=== PATIENT | female | born 1980 | race Caucasian/White ===

== ENCOUNTER 2021-02-02 23:47 | Observation (INO) ==
[2021-02-03] MEDS ORDERED: PROMETHAZINE HCL INJ 25 MG/ML 1 ML VIAL IM STA (05:05)
[2021-02-03] MEDS ORDERED: MoRPHine SULFATE 10 MG/ML CARP/VIAL IM STA (05:05)
--- NOTE | 2021-02-03 05:09 | History & Physical Report ---
Date of Service February 03, 2021 Assessment & Plan (1) Labor, prolonged latent phase: Plan: Options given to pt to go home vs. morphine rest. she has concerns that with her narcolepsy she will not rest at home and therefore wants to stay for morphine rest. FHTs categ 1. History of Present Illness Chief Complaint: contractions Primary Care Provider: NO PCP 41yo at 38wks with cc of contractions. No rom. No vb. +FM. She has been here for 4hr with no significant cx change. Ctx are less frequent but she is concerned with going home and not being able to sleep. Offered and accepted morphine rest. PNC c/b ama, RA, depression and narcolepsy, pylectasis PNL RH Pos, RI, GBS neg Allergies Allergy/AdvReac Type Severity Reaction Status Date / Time acetaminophen [From Lortab] Allergy Difficulty Verified 02/03/21 00:24 Breathing hydrocodone [From Lortab] Allergy Difficulty Verified 02/03/21 00:24 Breathing latex Allergy Hives Verified 02/03/21 00:24 sulfasalazine Allergy Hives Verified 02/03/21 00:24 tocilizumab [From Actemra] Allergy Anaphylaxis Verified 02/03/21 00:24 tramadol Allergy Difficulty Verified 02/03/21 00:24 Breathing Home Medications Medication Instructions Recorded Confirmed Type sertraline 25 mg tablet (Zoloft) 50 mg PO DAILY 10/01/19 02/03/21 History prenat.vits,demario,[id number] 1 tab PO DAILY 06/30/20 02/03/21 History aspirin 81 mg chewable tablet 81 mg PO DAILY 09/03/20 02/03/21 History breast pump #1 ea 11/16/20 02/03/21 Rx iron 1 tab PO Q OTHER DAY 02/03/21 02/03/21 History Patient History Medical History (Updated 02/03/21 @ 05:08 by Mariela Caro MD, FACOG) History of chicken pox Spontaneous 09/2019 Spontaneous vaginal delivery [facility] 2007 Surgical History S/P gastric surgery S/P tonsillectomy S/P wisdom tooth extraction Family History Mother Thyroid disease Asthma Daughter Asthma Juvenile arthritis Aunt Breast cancer Heart disease Grandmother (Maternal) Colorectal cancer Grandfather (Maternal) Hemochromatosis Social History (Updated 06/30/20 @ 13:20 by Lyla Clark) Smoking Status: Never smoker Hx Alcohol Use: No Hx Substance Use: No Preferred Language: Czech Communication Ability: Effective Offset Label Rewinder Required: No Beliefs That Will Affect Care: None marital status: marital status details: Nestor Wallace (42) [phone] Current Living Situation: Significant Other Current Living Situation Comment: house with Nestor current occupational status: employed 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 Other Information That Helps Us Care for You: No Feels Safe at Home: Yes Safety Concerns: Feels Safe At This Time Assistive Devices: None Physical Exam Constitutional: WD/WN, vitals as above Genitourinary: Manual OB Exam: + cervical dilation 4 cm, + cervical effacement 60% and + station -2 OB Exam Monitor Tracing: + external FHT monitor used, + external uterine monitor used (q5), + category I and + normal FHT variability Results & Data ([facility]) Vital Signs (Past 12 Hours) Vital Signs Temp Pulse Resp BP 02/03/21 04:14 97.7 F 68 18 121/77 02/03/21 00:34 97.7 F 18 02/03/21 00:08 67 108/69 Coding Level of Care Code None Diagnoses Labor, prolonged latent phase O63.0
--- NOTE | 2021-02-03 07:21 | Obstetrical Progress Note ---
Date of Service February 03, 2021 Assessment & Plan (1) False labor after 37 completed weeks of gestation: Plan: no evid of active labor. rec d/c home. has appt sunday. call with any worsening s/sx labor. nst reactive. >30min by bedside during her outpt stay here in LD Admission and Anticipated Discharge Date Admission Date: February 03, 2021 Subjective got some rest with morphine, ctx not as strong or frequent Physical Exam Constitutional: WD/WN, vitals as above Genitourinary: Manual OB Exam: + cervical dilation 4 cm, + cervical effacement 60% and + station -2 OB Exam Monitor Tracing: + external FHT monitor used, + external uterine monitor used (q5), + category I (reactive nst) and + normal FHT variability Results & Data ([facility]) Vital Signs (Past 12 Hours) Vital Signs Temp Pulse Resp BP 02/03/21 04:14 97.7 F 68 18 121/77 02/03/21 00:34 97.7 F 18 02/03/21 00:08 67 108/69 PG Care Time/CCT Total # of Minutes Spent Total Time Spent: 45 Total Time Spent with Patient: Total time spent is greater than 50% in coordination of care (as documented) at patient's floor/unit and/or counseling patient: Coding Level of Care Code 77018 Office/Outpt Visit, Est Diagnoses False labor after 37 completed weeks of gestation O47.1 CPT Codes Misx Procedure Codes - 21585 NST: 96269 NST ([id number]) PAINTER BARREL Miscellaneous Codes Misx Procedure Codes 34223 NST
== END 2021-02-03 07:30 | disposition home or self-care (01) ==
LOC: OPB 23:47 → 4S1 23:47 → 4S2 02-03 05:50 → 4S1 02-03 06:08

== ENCOUNTER 2021-02-03 14:55 | Inpatient (IN) ==
[2021-02-03] MEDS ORDERED: LACTATED RINGER'S 1,000 ML IV PRN (15:16)
[2021-02-03] MEDS ORDERED: OXYTOCIN 30 UNITS/500 ML BAG IV PRN ×2 (15:16→18:17)
--- NOTE | 2021-02-03 15:19 | Labor Progress Brief Note ---
Date of Service February 03, 2021 Subjective Pt returns with trickle of red liquid and worse contractions, good FM. Assessment & Plan (1) Normal labor and delivery: Plan: Admit, epidural if possible, exp mgmt. Physical Exam Physical Exam: /-1 bloody show and SROM evident for clear to bloody fluid FHT Cat 1 Pierz Q2min Results & Data ([facility]) Vital Signs (Past 12 Hours) Vital Signs Temp Pulse Resp BP 02/03/21 15:04 97.5 F L 22 02/03/21 15:03 81 105/70 Coding Level of Care Code None Diagnoses Normal labor and delivery O80
[2021-02-03] MEDS ORDERED: fentaNYL citrate 100 MCG/2 ML VIAL ONE ×2 (15:28→19:12)
[2021-02-03] MEDS ORDERED: BUPIVACAINE 0.25% 30 ML VIAL ONE ×2 (15:28→19:12)
[2021-02-03] MEDS ORDERED: ePHEDrine sulfate 50 MG/ML AMP ONE ×2 (15:28→19:12)
[2021-02-03] MEDS ORDERED: SODIUM CHLORIDE 0.9% INJ 10 ML VIAL ONE ×2 (15:28→19:12)
[2021-02-03] MEDS ORDERED: fentaNYL 2MCG/ML ROPIVACAINE 1.25MG/ML 100 ML BAG EPI ONE ×2 (15:29→19:12)
[2021-02-03 15:36] LABS: Hematocrit (blood only) 36.7 % (37-47); Hemoglobin 12.6 g/dL (12.0-16.0); Mean Corpuscular Hemoglobin 30.7 pg (25-34); Mean Corpuscular Volume 89.5 fL (80-100); Mean Platelet Volume 10.5 fL (7.4-10.4); Platelet Count 216 K/uL (130-400); RDW Coefficient of Variation 14.2 % (11.5-14.5); White Blood Count 11.91 K/uL (4.8-10.8)
[2021-02-03] MEDS ORDERED: fentaNYL 2MCG/ML ROPIVACAINE 1.25MG/ML 100 ML BAG EPI PRN (15:36)
[2021-02-03] MEDS ORDERED: NALOXONE HCL 1 MG in SODIUM CHLORIDE 0.9% 1000ML 1,000 ML IV PRN (15:36)
[2021-02-03] MEDS ORDERED: diphenhydrAMINE 50 MG/ML VIAL IV PRN (15:36)
[2021-02-03] MEDS ORDERED: ONDANSETRON INJ 2 MG/ML 2 ML VIAL IV PRN (15:36)
[2021-02-03] MEDS ORDERED: ePHEDrine sulfate 50 MG/ML AMP IV PRN (15:36)
[2021-02-03] MEDS ORDERED: NALOXONE HCL 0.4 MG/1 ML VIAL/CARP IV PRN (15:36)
--- NOTE | 2021-02-03 15:38 | Anesthesiology Consultation ---
Date of Service February 03, 2021 Assessment & Plan (1) Encounter for pre-operative examination: Chart Review Chart Review: Patient NOT seen in Pre Admission Testing and Acceptable Risk for Labor Epidural Consults Requested none History Allergies Allergy/AdvReac Type Severity Reaction Status Date / Time acetaminophen [From Lortab] Allergy Difficulty Verified 02/03/21 00:24 Breathing hydrocodone [From Lortab] Allergy Difficulty Verified 02/03/21 00:24 Breathing latex Allergy Hives Verified 02/03/21 00:24 sulfasalazine Allergy Hives Verified 02/03/21 00:24 tocilizumab [From Actemra] Allergy Anaphylaxis Verified 02/03/21 00:24 tramadol Allergy Difficulty Verified 02/03/21 00:24 Breathing Medications Home Medications Medication Instructions Recorded Confirmed Last Taken sertraline 25 mg tablet (Zoloft) 50 mg PO DAILY 10/01/19 02/03/21 02/02/21 19:00 prenat.vits,demario,fje-karq-sdwto 1 tab PO DAILY 06/30/20 02/03/21 02/02/21 19:00 aspirin 81 mg chewable tablet 81 mg PO DAILY 09/03/20 02/03/21 02/02/21 19:00 breast pump #1 ea 11/16/20 02/03/21 Unknown iron 1 tab PO Q OTHER DAY 02/03/21 02/03/21 02/02/21 19:00 Past Medical History Medical History History of chicken pox Spontaneous 09/2019 Spontaneous vaginal delivery [facility] 2007 Exercise / Class Metabolic Activity II 4-5 Yardwork/Stairs/Walk up hill Past Family History Family History Mother Thyroid disease Asthma Daughter Asthma Juvenile arthritis Aunt Breast cancer Heart disease Grandmother (Maternal) Colorectal cancer Grandfather (Maternal) Hemochromatosis Past Surgical History Surgical History S/P gastric surgery S/P tonsillectomy S/P wisdom tooth extraction Past Anesthesia History No Hx of Anesthesia Complications and No Family Hx of Anesthesia Complications History of PONV No Hx of PONV and No Hx of Motion Sickness Social History Smoking Status: Never smoker Do You Dip or Chew Tobacco: No Hx Alcohol Use: No Hx Substance Use: No Physical Exam Vital Signs Last Vital Signs Temp 36.4 C L 02/03/21 15:04 Pulse 80 02/03/21 15:37 Resp 22 02/03/21 15:04 BP 105/70 02/03/21 15:03 Pulse Ox 100 02/03/21 15:37 Testing Laboratory Results 02/03/21 15:24
[2021-02-03 15:48] LABS: Mean Corpuscular Hgb Conc 34.3 g/dL (32-36)
[2021-02-03] MEDS ORDERED: LIDOCAINE 2%/EPINEPHRINE 1:200,000 20 ML SDV ONE (18:09)
--- NOTE | 2021-02-03 18:24 | Labor Progress Brief Note ---
Date of Service February 03, 2021 Subjective Very painful, but also anxious about having a new epidural placed, as last attempt was very anxiety-provoking for her. Assessment & Plan (1) Normal labor and delivery: Plan: Discussed labor + srom, need to continue moving forwards due to ruptured membranes, and recommend pitocin. Given that this will necessarily make contractions stronger and more frequent, encouraged attempting replacement of epidural. Patient agrees. Admission and Anticipated Discharge Date Admission Date: February 03, 2021 Physical Exam Physical Exam: FHT Cat 1 Pigeon Q5 / irreg Cvx unchanged, still 8cm LOF continues, clear + blood tinge Results & Data ([facility]) Vital Signs (Past 12 Hours) Vital Signs Temp Pulse Resp BP Pulse Ox 02/03/21 18:15 90 145/99 H 02/03/21 18:12 72 97 02/03/21 18:07 71 91 02/03/21 18:05 76 86 L 02/03/21 18:03 71 124/78 02/03/21 18:02 75 99 02/03/21 17:57 73 94 02/03/21 17:56 87 87 L 02/03/21 17:52 83 97 02/03/21 17:48 76 115/59 L 02/03/21 17:47 77 97 02/03/21 17:42 68 93 02/03/21 17:37 72 94 02/03/21 17:33 68 125/75 02/03/21 17:32 75 98 02/03/21 17:27 75 95 02/03/21 17:22 76 98 02/03/21 17:18 77 161/84 H 02/03/21 17:17 79 94 02/03/21 17:12 69 94 02/03/21 17:07 79 94 02/03/21 17:03 97.5 F L 100 H 22 116/67 02/03/21 17:02 86 95 02/03/21 17:00 100 H 116/67 02/03/21 16:57 84 96 02/03/21 16:54 75 133/70 02/03/21 16:52 81 95 02/03/21 16:48 69 122/66 02/03/21 16:47 75 96 02/03/21 16:45 72 113/76 02/03/21 16:42 79 100 02/03/21 16:40 75 149/86 H 02/03/21 16:37 81 96 02/03/21 16:36 85 113/63 02/03/21 16:34 71 110/66 02/03/21 16:32 69 95/51 L 95 02/03/21 16:28 69 95/51 L 02/03/21 16:27 74 97/51 L 100 02/03/21 16:25 75 94 02/03/21 16:24 70 107/59 L 02/03/21 16:23 76 97/51 L 02/03/21 16:22 76 96 02/03/21 16:21 78 137/60 02/03/21 16:18 73 102/53 L 02/03/21 16:17 69 96 02/03/21 16:16 76 114/58 L 02/03/21 16:14 74 112/60 02/03/21 16:13 81 103/55 L 02/03/21 16:12 81 96 02/03/21 16:11 82 93 02/03/21 16:08 72 123/76 02/03/21 16:07 74 122/87 99 02/03/21 16:05 77 156/83 H 02/03/21 16:02 83 99 02/03/21 16:00 95 H 139/84 02/03/21 15:57 78 99 02/03/21 15:52 92 H 99 02/03/21 15:47 83 100 02/03/21 15:42 93 H 99 02/03/21 15:37 80 100 02/03/21 15:32 87 100 02/03/21 15:04 97.5 F L 22 02/03/21 15:03 81 105/70 Coding Level of Care Code None Diagnoses Normal labor and delivery O80
--- NOTE | 2021-02-03 21:19 | Delivery Summary ---
Vaginal Delivery Summary Date of Service February 03, 2021 Vaginal Delivery Summary DIAGNOSES: 1. Courtney intrauterine at 38w4d gestation. 2. Spontaneous onset of labor. 3. Group B Streptococcus Neg. 4. Advanced maternal age >40yo 5. Rheumatoid Arthritis in mother 6. renal pyelectasis PROCEDURE: Spontaneous vaginal delivery without laceration. SURGEON: Swathi Robison MD. JUNIOR DATA ANALYST: None. ESTIMATED BLOOD LOSS: 150 mL. COMPLICATIONS: None. PLACENTA: Spontaneous and intact with a 3-vessel cord. DISPOSITION: Stable to labor and delivery. DESCRIPTION: The patient pushed well and brought the head to in OA position. The infant's head was allowed to deliver with contraction force and no further active pushing, with the perineum protected during this time. There was an occult loop of prolapsed cord which delivered alongside and beyond the head. The right shoulder was anterior. The shoulders and body delivered without any difficulty, and the was placed on the maternal abdomen. It was vigorous and moving all extremities, and making respiratory efforts. The cord was doubly clamped by the MD and then cut by the FOB. The placenta delivered spontaneously and was noted to be intact and with a 3VC. The cervix, vagina and perineum were examined and were found to be without defect requiring repair. The fundus was firm and lochia minimal immediately after delivery. [facility] Vaginal Delivery Charge Vaginal Delivery Codes: 35956 global code for the antepartum, delivery, and post-
[2021-02-03] MEDS ORDERED: HYDROCORTISONE ACETATE 25 MG SUPP PR PRN (21:32)
[2021-02-03] MEDS ORDERED: oxyCODONE/ACETAMINOPHEN 5mg/325mg TAB PO PRN (21:32)
[2021-02-03] MEDS ORDERED: ACETAMINOPHEN 325 MG TAB PO PRN (21:32)
[2021-02-03] MEDS ORDERED: SUPERCREAM 0.870% 15 GM JAR EXT PRN (21:32)
[2021-02-03] MEDS ORDERED: BENZOCAINE 20% AER SPR 82.5 GM CAN EXT PRN (21:32)
--- NOTE | 2021-02-03 21:39 | Anesthesia Procedure Note ---
Date of Service February 03, 2021 Anesthesia Post Epidural Note Vital Signs Vital Signs: Temp Pulse Resp BP Pulse Ox 36.8 C 90 18 129/82 97 02/03/21 21:19 02/03/21 21:34 02/03/21 21:19 02/03/21 21:34 02/03/21 21:17 Pain Intensity Right Hip: Pain Intensity: 0 Notes Mental Status: alert / awake / arousable and participated in evaluation Patient Amnestic to Procedure: No Nausea / Vomiting: adequately controlled Pain: adequately controlled Airway Patency, RR, SpO2: stable & adequate BP & HR: stable & adequate Hydration State: stable & adequate Neuraxial Anesthesia: was administered and sensory block is resolving Anesthetic Complications: no major complications apparent and Pt Satisfied with anesthetic care Epidural: Removed without complications and With tip intact
[2021-02-04] MEDS: IBUPROFEN 600 MG TAB PO PRN ×5 (00:31→19:49)
[2021-02-04 06:15] LABS: Hematocrit (blood only) 33.4 % (37-47); Hemoglobin 11.3 g/dL (12.0-16.0)
--- NOTE | 2021-02-04 06:16 | Obstetrical Progress Note ---
Date of Service <Rosie Nguyen DO - Last Filed: 02/04/21 06:16> February 04, 2021 Assessment & Plan <Rosie Nguyen DO - Last Filed: 02/04/21 06:16> (1) Encounter for care and examination after delivery: 41 yo post op day1 from , doing well. -Continue routine post care. -vital signs reviewed and WNL (Tmax 37.1) -Blood Type A+, GBS-, Rubella immune -Encourage ambulation, monitor and control pain with Motrin, tylenol PRN, resume regular diet, monitor lochia -encourage breast feeding -hemoglobin 12.6 (02/03) -discussed d/c, patient may be comfortable leaving in afternoon Day #:: 1 <Swathi Robison MD - Last Filed: 02/04/21 07:17> (1) Encounter for care and examination after delivery: Subjective <Rosie Nguyen DO - Last Filed: 02/04/21 06:16> Ambulation: ambulating normally Voiding: no voiding problems Passing Gas:: No Diet Tolerance:: regular diet Lochia:: Small Feeding Type:: breast feeding Current Pain Level(1-10): 3 (pain well controlled on medication) Review of Systems Denies fever, chills, sweats Denies shortness of breath, difficulty breathing, chest pain, palpitations, c hest pressure. Denies breast pain. Denies dysuria. Denies headache or changes in vision. Physical Exam <DO Rashaad Turner Last Filed: 02/04/21 06:16> General: Alert, oriented. No acute distress. Cardiac: Regular rate and rhythm, no murmurs/rubs/gallops. Respiratory: Clear to auscultation bilaterally a/p, no wheezes/rales/rhonchi. No increased work of breathing. Symmetrical chest rise. No respiratory distress. Abdomen: Soft, nontender, nondistended. Bowel sounds present. Uterus: Uterine fundus firm, palpable at umbilicus. Lower Extremities: No lower extremity edema or swelling. No deep calf pain. Karan's negative bilaterally.. Results & Data ([facility]) <Rosie Nguyen DO - Last Filed: 02/04/21 06:16> Vital Signs (Past 12 Hours) Vital Signs Temp Pulse Pulse Resp BP BP Pulse Ox 02/04/21 04:30 37.1 C 71 16 94/64 L 96 02/04/21 00:05 37.6 C H 78 18 106/70 97 02/03/21 23:34 86 109/60 02/03/21 23:19 80 105/64 02/03/21 23:04 79 18 103/59 L 02/03/21 22:49 85 99/58 L 02/03/21 22:34 86 18 117/67 02/03/21 22:19 84 18 111/69 02/03/21 22:04 83 18 111/69 02/03/21 21:51 90 18 114/60 02/03/21 21:34 90 18 129/82 02/03/21 21:19 36.8 C 88 18 120/67 02/03/21 21:17 97 H 97 02/03/21 21:12 95 H 100 02/03/21 21:07 90 81 L 02/03/21 21:04 75 112/71 02/03/21 21:02 90 100 02/03/21 20:57 80 100 02/03/21 20:55 76 87 L 02/03/21 20:52 71 98 02/03/21 20:50 66 113/73 02/03/21 20:47 71 97 02/03/21 20:42 70 99 02/03/21 20:37 69 97 02/03/21 20:34 69 109/64 02/03/21 20:32 69 100 02/03/21 20:27 69 99 02/03/21 20:22 70 100 02/03/21 20:17 75 100/63 98 02/03/21 20:13 67 104/70 02/03/21 20:12 71 100 02/03/21 20:08 68 111/66 02/03/21 20:07 68 98 02/03/21 20:02 71 101/65 99 02/03/21 19:57 75 115/66 97 02/03/21 19:53 71 105/70 02/03/21 19:52 76 100 02/03/21 19:47 82 95 02/03/21 19:46 76 101/66 02/03/21 19:44 93 H 91/56 L 02/03/21 19:42 77 103/69 99 08/12/21 19:40 75 103/64 02/03/21 19:38 89 100/67 02/03/21 19:37 76 98 02/03/21 19:36 92 H 98/64 L 02/03/21 19:34 77 115/75 02/03/21 19:32 87 111/76 97 02/03/21 19:30 77 109/85 02/03/21 19:27 78 98 02/03/21 19:22 88 94 02/03/21 19:18 75 128/75 02/03/21 19:17 74 100 02/03/21 19:12 78 100 02/03/21 19:07 80 99 02/03/21 19:02 36.4 C L 73 18 127/77 96 02/03/21 18:57 77 99 02/03/21 18:52 80 100 02/03/21 18:47 81 118/79 98 02/03/21 18:42 74 97 02/03/21 18:37 76 97 02/03/21 18:33 79 101/59 L 02/03/21 18:32 80 87/50 L 96 02/03/21 18:27 72 98 02/03/21 18:22 92 H 94 02/03/21 18:18 75 161/87 H 02/03/21 18:17 83 98 02/03/21 18:15 90 145/99 H Laboratory Results 02/04/21 02/03/21 02/03/21 Range/Units 05:58 15:24 15:21 WBC 11.91 H (4.8-10.8) K/uL RBC 4.10 L (4.2-5.4) M/uL Hgb 11.3 L 12.6 (12.0-16.0) g/dL Hct 33.4 L 36.7 L (37-47) % MCV 89.5 (80-100) fL MCH 30.7 (25-34) pg MCHC 34.3 (32-36) g/dL RDW Std Deviation 47.0 H (36.4-46.3) fL RDW Coeff of Wayne 14.2 (11.5-14.5) % Plt Count 216 (130-400) K/uL MPV 10.5 H (7.4-10.4) fL COVID-19 Eval Order SARS-CoV-2, RNA, NAAT NEGATIVE (NEGATIVE) 02/03/21 Range/Units 15:21 WBC (4.8-10.8) K/uL RBC (4.2-5.4) M/uL Hgb (12.0-16.0) g/dL Hct (37-47) % MCV (80-100) fL MCH (25-34) pg MCHC (32-36) g/dL RDW Std Deviation (36.4-46.3) fL RDW Coeff of Wayne (11.5-14.5) % Plt Count (130-400) K/uL MPV (7.4-10.4) fL COVID-19 Eval [facility] SARS-CoV-2, RNA, NAAT (NEGATIVE) Medications Administered Current Inpatient Medications Acetaminophen (Acetaminophen 325 Mg Tab) 650 mg PO Q6H PRN PRN Reason: Pain/GUZMAN/Fever Stop: 03/05/21 21:31 Benzocaine (Benzocaine 20% Aer Spr 82.5 Gm Can) 1 appln EXT PRN PRN PRN Reason: Perineal Discomfort Stop: 03/05/21 21:31 Cocaine HCl (Supercream 0.870% 15 Gm Jar) 1 gm EXT BID PRN PRN Reason: Hemorrhoidal Inflammation Stop: 02/17/21 21:31 Diphtheria/Pertussis/Tetanus Vacc (Diphtheria/Tetanus/Pertussis 0.5 Ml Syr/Vial) 0.5 ml IM .ONCE ONE Stop: 02/04/21 09:01 Hydrocortisone (Hydrocortisone Acetate 25 Mg Supp) 25 mg DC BID PRN PRN Reason: Hemorrhoidal Inflammation Stop: 03/05/21 21:31 Oxytocin (Pitocin) 30 units in 500 mls @ 333.333 mls/hr IV .Q1H30M PRN; Protocol PRN Reason: Bleeding Control Stop: 03/05/21 15:15 Lactated Ringer's (Lr) 1,000 mls @ 125 mls/hr IV .Q8H PRN; Protocol PRN Reason: L&D Protocol Stop: 02/05/21 15:15 Last Admin: 02/03/21 17:39 Dose: 125 mls/hr Documented by: Ibuprofen (Ibuprofen 600 Mg Tab) 600 mg PO Q4H PRN PRN Reason: Pain/GUZMAN/Cramping/Fever Stop: 03/05/21 21:31 Last Admin: 02/04/21 04:54 Dose: 600 mg Documented by: Oxycodone/Acetaminophen (Oxycodone/Acetaminophen 5mg/325mg Tab) 1 tab PO Q4H PRN PRN Reason: Pain not relieved by... Stop: 02/17/21 21:31 Prenat Multivit/[place]/Iron/Folic Ac ( Vitamin 1 Tab) 1 tab PO DAILY@08 [facility] Stop: 03/06/21 07:59 Sertraline HCl (Sertraline Hcl 50 Mg Tablet) 50 mg PO DAILY [facility] Stop: 03/06/21 08:59 <Swathi Robison MD - Last Filed: 02/04/21 07:17> Co-Signing Physician Notes Resident Physician Supervision Note: I interviewed and examined the patient. Discussed with Dr. Nguyen and agree with findings and plan as documented in the note. Any exceptions or clarifications are listed here: Patient not eligible for d/c home until after 2100 and will be staying until tomorrow despite note above. Documented By: Swathi Robison MD, FACOG Resident Activity Tracking <Rosie Nguyen DO - Last Filed: 02/04/21 06:16> Resident Involvement: Resident Care Provided Care Provided: OB Delivery
[2021-02-04] MEDS ORDERED: Nursing to Pharmacy Communication SCH (06:45)
[2021-02-04] MEDS: PRENATAL VITAMIN 1 TAB PO SCH (08:34)
[2021-02-04] MEDS ORDERED: SERTRALINE HCL 50 MG TABLET PO SCH ×2 (09:00→19:00)
[2021-02-04] MEDS ORDERED: DIPHTHERIA/TETANUS/PERTUSSIS 0.5 ML SYR/VIAL IM ONE (09:00)
[2021-02-04 20:30] VITALS: TEMP 97.5
[2021-02-05] MEDS: IBUPROFEN 600 MG TAB PO PRN ×3 (00:10→08:55)
--- NOTE | 2021-02-05 07:28 | Obstetrical Progress Note ---
Date of Service <Rosie Nguyen - Last Filed: 02/05/21 07:28> February 05, 2021 Assessment & Plan <Rosie NguyenDO - Last Filed: 02/05/21 07:28> (1) Encounter for care and examination after delivery: 41 yo post op day2 from , doing well. -Continue routine post care. -vital signs reviewed and WNL (Tmax 37.1) -Blood Type A+, GBS-, Rubella immune -Encourage ambulation, monitor and control pain with Motrin, tylenol PRN, resume regular diet, monitor lochia -encourage breast feeding -hemoglobin 13.3 -discussed d/c, awaiting US for baby Day #:: 2 <Leigha Mckeon MD, FACOG - Last Filed: 02/05/21 08:23> (1) Encounter for care and examination after delivery: Subjective <Rosie PatrickDO - Last Filed: 02/05/21 07:28> Ambulation: ambulating normally Voiding: no voiding problems Passing Gas:: Yes Diet Tolerance:: regular diet Lochia:: Small Feeding Type:: breast feeding Current Pain Level(1-10): 2 (pain well controlled on medication) Review of Systems Positive occasional abdominal cramping Denies fever, chills, sweats Denies shortness of breath, difficulty breathing, chest pain, palpitations, chest pressure. Denies breast pain. Denies dysuria. Denies headache or changes in vision. Physical Exam <Rosie PatrickDO - Last Filed: 02/05/21 07:28> General: Alert, oriented. No acute distress. Cardiac: Regular rate and rhythm, no murmurs/rubs/gallops. Respiratory: Clear to auscultation bilaterally a/p, no wheezes/rales/rhonchi. No increased work of breathing. Symmetrical chest rise. No respiratory distress. Abdomen: Soft, nontender, nondistended. Bowel sounds present. Uterus: Uterine fundus firm, palpable at umbilicus. Lower Extremities: No lower extremity edema or swelling. No deep calf pain. Karan's negative bilaterally.. Results & Data ([facility]) <Rosie Nguyen DO - Last Filed: 02/05/21 07:28> Vital Signs (Past 12 Hours) Vital Signs Temp Pulse Resp BP Pulse Ox 02/04/21 23:00 36.4 C L 87 16 105/72 96 02/04/21 19:45 36.4 C L 87 16 103/72 97 Medications Administered Current Inpatient Medications Acetaminophen (Acetaminophen 325 Mg Tab) 650 mg PO Q6H PRN PRN Reason: Pain/GUZMAN/Fever Stop: 03/05/21 21:31 Benzocaine (Benzocaine 20% Aer Spr 82.5 Gm Can) 1 appln EXT PRN PRN PRN Reason: Perineal Discomfort Stop: 03/05/21 21:31 Cocaine HCl (Supercream 0.870% 15 Gm Jar) 1 gm EXT BID PRN PRN Reason: Hemorrhoidal Inflammation Stop: 02/17/21 21:31 Hydrocortisone (Hydrocortisone Acetate 25 Mg Supp) 25 mg [place] BID PRN PRN Reason: Hemorrhoidal Inflammation Stop: 03/05/21 21:31 Oxytocin (Pitocin) 30 units in 500 mls @ 333.333 mls/hr IV .Q1H30M PRN; Protocol PRN Reason: Bleeding Control Stop: 03/05/21 15:15 Lactated Ringer's (Lr) 1,000 mls @ 125 mls/hr IV .Q8H PRN; Protocol PRN Reason: L&D Protocol Stop: 02/05/21 15:15 Last Admin: 02/03/21 17:39 Dose: 125 mls/hr Documented by: Ibuprofen (Ibuprofen 600 Mg Tab) 600 mg PO Q4H PRN PRN Reason: Pain/GUZMAN/Cramping/Fever Stop: 03/05/21 21:31 Last Admin: 02/05/21 05:35 Dose: 600 mg Documented by: Oxycodone/Acetaminophen (Oxycodone/Acetaminophen 5mg/325mg Tab) 1 tab PO Q4H PRN PRN Reason: Pain not relieved by... Stop: 02/17/21 21:31 Prenat Multivit/[place]/Iron/Folic Ac ( Vitamin 1 Tab) 1 tab PO DAILY@08 [facility] Stop: 03/06/21 07:59 Last Admin: 02/04/21 08:34 Dose: 1 tab Documented by: Sertraline HCl (Sertraline Hcl 50 Mg Tablet) 50 mg PO DAILY@1900 [facility] Stop: 03/06/21 18:59 Last Admin: 02/04/21 19:49 Dose: 50 mg Documented by: <Leigha Mckeon MD, FACOG - Last Filed: 02/05/21 08:23> Co-Signing Physician Notes Resident Physician Supervision Note: I interviewed and examined the patient. Discussed with Dr. Nguyen and agree with findings and plan as documented in the note. Any exceptions or clarifications are listed here: Doing well. Routine care. Baby having a renal us this afternoon. f/u based on that . If it looks good likely will be d/c. Instructions reviewed. Documented By: Leigha Mckeon MD, FACOG Resident Activity Tracking <Rosie Nguyen DO - Last Filed: 02/05/21 07:28> Resident Involvement: Resident Care Provided Care Provided: OB Delivery
[2021-02-05] MEDS: PRENATAL VITAMIN 1 TAB PO SCH (08:55)
[2021-02-05 10:03] VITALS: BP 114/78; PULSE 65; O2SAT 97
== END 2021-02-05 14:15 | disposition home or self-care (01) | DRG 807 ==
LOC: OPB 14:55 → 4S1 14:56 → 4N 02-04 00:02